=== PATIENT | female | born 2000 | race African-American/Black ===

== ENCOUNTER 2021-05-28 07:54 | Inpatient (IN) | payer BC ==
[~2021-05-28] VITALS: Ht 167.6 cm; Wt 100.0 kg
[2021-05-28] MEDS ORDERED: OLANZapine ORAL DISINTEGRATING TAB 5MG PO ONE (08:55)
[2021-05-28 09:19] LABS: HEMATOCRIT 39.3 % (36.0-47.0); HEMOGLOBIN 12.2 g/dl (12.0-15.5); MEAN CORPUSCULAR HEMOGLOBIN 21.8 pg (27.0-33.0); MEAN CORPUSCULAR VOLUME 70.3 fl (80.0-96.0); PLATELET COUNT, AUTOMATED 345 10^3/uL (150-450); RED BLOOD COUNT 5.59 10^6/uL (4.00-5.40); WHITE BLOOD COUNT 6.5 10^3/uL (4.0-10.0)
[2021-05-28 09:46] LABS: HCG, SERUM QUALITATIVE NEGATIVE (NEGATIVE)
[2021-05-28 09:54] LABS: ACETAMINOPHEN LEVEL < 2.0 UG/ML (10.0-30.0); ALBUMIN 4.1 GM/DL (3.2-5.2); ALT/SGPT 23 U/L (12-78); BILIRUBIN,DIRECT < 0.1 MG/DL (0.0-0.2); BILIRUBIN,TOTAL 0.3 MG/DL (0.2-1.0); BLOOD UREA NITROGEN 12 MG/DL (7-18); CALCIUM LEVEL 9.4 MG/DL (8.5-10.1); CARBON DIOXIDE LEVEL 25 MEQ/L (21-32); CHLORIDE LEVEL 109 MEQ/L (98-107); CREATININE FOR GFR 1.14 MG/DL (0.55-1.30); ETHYL ALCOHOL (ETHANOL) 0.003 % (0.000-0.010); GLUCOSE, FASTING 107 MG/DL (70-100); POTASSIUM SERUM 3.8 MEQ/L (3.5-5.1); SALICYLATE LEVEL < 1.7 MG/DL (5.0-30.0); SODIUM LEVEL 140 MEQ/L (136-145); TOTAL PROTEIN 8.5 GM/DL (6.4-8.2)
[2021-05-28 11:23] LABS: AMPHETAMINES LEVEL URINE NEGATIVE (NEGATIVE); BARBITURATES URINE NEGATIVE (NEGATIVE); BENZODIAZEPINES URINE NEGATIVE (NEGATIVE); CANNABINOIDS URINE NEGATIVE (NEGATIVE); COCAINE METABOLITE URINE NEGATIVE (NEGATIVE); METHADONE URINE NEGATIVE (NEGATIVE); OPIATES URINE NEGATIVE (NEGATIVE); PHENCYCLIDINE URINE NEGATIVE (NEGATIVE)
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
[2021-05-28 15:35] LABS: RSV AMPLIFICATION NEGATIVE (NEGATIVE)
[2021-05-28] MEDS ORDERED: LORazepam 2 MG TAB PO STA (15:51)
[2021-05-28] MEDS ORDERED: HOME MED LIST COMPLETE! XX SCH (17:40)
[2021-05-28] MEDS ORDERED: MAALOX 30 ML SUSP *UDC PO PRN (18:40)
[2021-05-28] MEDS ORDERED: MOM 30ML SUSPENSION UDC PO PRN (18:40)
[2021-05-28] MEDS ORDERED: ACETAMINOPHEN TAB 650MG DOSE (2X325MG) PO PRN (18:40)
[2021-05-28 21:54] VITALS: BP 136/62
[2021-05-28] MEDS: OLANZapine ORAL DISINTEGRATING TAB 5MG PO PRN (22:39)
[2021-05-29] MEDS ORDERED: OLANZapine ORAL DISINTEGRATING TAB 5MG PO ONE (00:05)
[2021-05-29] MEDS: DIVALPROEX 250 MG TAB PO SCH ×2 (09:00→20:09)
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
[2021-05-29 16:25] VITALS: BP 149/87
[2021-05-29] MEDS: LEVALBUTEROL HFA 45MCG/ACT 15 GM INHALER INH PRN ×2 (17:35→20:56)
[2021-05-29] MEDS: traZODone 50 MG TAB PO PRN (20:10)
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
[2021-05-29] MEDS ORDERED: OLANZapine 5 MG TAB PO SCH (21:00)
[2021-05-29] MEDS: SYMBICORT 80/4.5MCG INHALER 6GM INH SCH (21:47)
[2021-05-30] MEDS: OLANZapine ORAL DISINTEGRATING TAB 5MG PO PRN ×3 (01:19→22:47)
[2021-05-30] MEDS ORDERED: LORazepam 1 MG TAB PO ONE ×2 (01:35→02:30)
[2021-05-30] MEDS ORDERED: haloperidoL 5 MG TAB PO ONE (02:30)
[2021-05-30] MEDS: SYMBICORT 80/4.5MCG INHALER 6GM INH SCH ×3 (08:45→22:50)
[2021-05-30] MEDS: DIVALPROEX 250 MG TAB PO SCH ×2 (08:46→22:26)
[2021-05-30] MEDS: LURASIDONE 20 MG TAB (LATUDA) PO SCH (12:16)
[2021-05-30 16:18] VITALS: BP 140/90
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
[2021-05-30] MEDS: LEVALBUTEROL HFA 45MCG/ACT 15 GM INHALER INH PRN (19:39)
[2021-05-30 19:41] VITALS: BP 144/79
[2021-05-30] MEDS: traZODone 50 MG TAB PO PRN (22:46)
[2021-05-31 06:51] VITALS: BP 145/67
[2021-05-31] MEDS: LURASIDONE 20 MG TAB (LATUDA) PO SCH (08:08)
[2021-05-31] MEDS: DIVALPROEX 250 MG TAB PO SCH (08:08)
[2021-05-31] MEDS: SYMBICORT 80/4.5MCG INHALER 6GM INH SCH ×2 (08:19→20:25)
[2021-05-31] MEDS ORDERED: LORazepam 1 MG TAB PO ONE (10:45)
[2021-05-31] MEDS ORDERED: haloperidoL 5 MG TAB PO STA (10:45)
[2021-05-31] MEDS ORDERED: LEVALBUTEROL HFA 45MCG/ACT 15 GM INHALER INH PRN (11:50)
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
[2021-05-31] MEDS: traZODone 50 MG TAB PO PRN (20:25)
[2021-05-31] MEDS: OLANZapine ORAL DISINTEGRATING TAB 5MG PO PRN (21:25)
[2021-06-01 06:52] VITALS: BP 140/60
[2021-06-01] MEDS: SYMBICORT 80/4.5MCG INHALER 6GM INH SCH ×2 (08:16→20:00)
[2021-06-01] MEDS ORDERED: CARIPRAZINE 1.5MG CAPSULE (VRAYLAR) PO SCH (09:00)
[2021-06-01] MEDS ORDERED: LORazepam 1 MG TAB PO ONE (14:05)
[2021-06-01] MEDS ORDERED: haloperidoL 5 MG TAB PO ONE (14:05)
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
[2021-06-01 18:26] VITALS: BP 126/58
[2021-06-01] MEDS: LITHIUM CARBONATE 150 MG CAP PO SCH (20:01)
[2021-06-01] MEDS: traZODone 50 MG TAB PO PRN (20:01)
[2021-06-02] MEDS: SYMBICORT 80/4.5MCG INHALER 6GM INH SCH ×2 (08:43→20:11)
[2021-06-02] MEDS: LITHIUM CARBONATE 150 MG CAP PO SCH ×2 (08:43→20:11)
[2021-06-02 16:51] VITALS: BP 140/68
[2021-06-02] MEDS: traZODone 50 MG TAB PO PRN (20:11)
[2021-06-03] MEDS: OLANZapine ORAL DISINTEGRATING TAB 5MG PO PRN ×2 (01:21→20:25)
[2021-06-03 06:30] VITALS: BP 114/56
[2021-06-03] MEDS: LITHIUM CARBONATE 150 MG CAP PO SCH ×2 (08:08→20:25)
[2021-06-03] MEDS: SYMBICORT 80/4.5MCG INHALER 6GM INH SCH ×2 (08:09→20:25)
[2021-06-03 16:23] VITALS: BP 126/64
[2021-06-04 06:41] VITALS: BP 113/63
[2021-06-04] MEDS: SYMBICORT 80/4.5MCG INHALER 6GM INH SCH (08:15)
[2021-06-04] MEDS: LITHIUM CARBONATE 150 MG CAP PO SCH (08:16)
[2021-06-04] MEDS ORDERED: LITH300C PO (09:36)
[2021-06-04] MEDS ORDERED: LEVAINH INH (09:36)
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
== END 2021-06-04 12:00 | disposition home or self-care (01) | DRG 753 ==
LOC: M ED 07:54 → M ED INP 18:40 → M PSY 21:14
PROVIDERS: ADMIT Psychiatry & Neurology Psychiatry; ATTEND Psychiatry & Neurology Psychiatry
DX: F31.9 Bipolar disorder, unspecified (principal); Z20.822 Contact with and (suspected) exposure to COVID-19; Z91.010 Allergy to peanuts; Z91.013 Allergy to seafood

== ENCOUNTER 2021-07-01 14:13 | Inpatient (IN) | payer BC ==
[~2021-07-01] VITALS: Ht 167.6 cm; Wt 99.8 kg
[~2021-07-01 14:13] MED LIST: LEVAINH INH; LITH300C PO
[2021-07-01] MEDS ORDERED: LORazepam 2 MG TAB PO STA (14:41)
[2021-07-01] MEDS ORDERED: OLANZapine INTRAMUSCULAR 10MG VIAL IM ONE ×2 (14:55→22:30)
[2021-07-01 16:10] LABS: HEMATOCRIT 39.8 % (36.0-47.0); HEMOGLOBIN 12.2 g/dl (12.0-15.5); MEAN CORPUSCULAR HEMOGLOBIN 21.8 pg (27.0-33.0); MEAN CORPUSCULAR HGB CONC 30.7 g/dl (32.0-36.5); MEAN CORPUSCULAR VOLUME 71.2 fl (80.0-96.0); PLATELET COUNT, AUTOMATED 281 10^3/uL (150-450); RED BLOOD COUNT 5.59 10^6/uL (4.00-5.40); WHITE BLOOD COUNT 6.6 10^3/uL (4.0-10.0)
[2021-07-01 16:36] LABS: HCG, SERUM QUALITATIVE NEGATIVE (NEGATIVE)
[2021-07-01 16:43] LABS: ACETAMINOPHEN LEVEL < 2.0 UG/ML (10.0-30.0); ALT/SGPT 27 U/L (12-78); BILIRUBIN,DIRECT 0.2 MG/DL (0.0-0.2); BILIRUBIN,TOTAL 0.4 MG/DL (0.2-1.0); BLOOD UREA NITROGEN 13 MG/DL (7-18); CALCIUM LEVEL 9.6 MG/DL (8.5-10.1); CARBON DIOXIDE LEVEL 23 MEQ/L (21-32); CHLORIDE LEVEL 108 MEQ/L (98-107); CREATININE FOR GFR 1.23 MG/DL (0.55-1.30); ETHYL ALCOHOL (ETHANOL) < 0.003 % (0.000-0.010); GLUCOSE, FASTING 90 MG/DL (70-100); LITHIUM LEVEL < 0.20 MEQ/L (0.60-1.20); SALICYLATE LEVEL < 1.7 MG/DL (5.0-30.0); SODIUM LEVEL 140 MEQ/L (136-145); TOTAL PROTEIN 8.3 GM/DL (6.4-8.2)
[2021-07-01 17:00] LABS: RSV AMPLIFICATION NEGATIVE (NEGATIVE)
[2021-07-01 19:16] LABS: AMPHETAMINES LEVEL URINE NEGATIVE (NEGATIVE); BARBITURATES URINE NEGATIVE (NEGATIVE); BENZODIAZEPINES URINE NEGATIVE (NEGATIVE); CANNABINOIDS URINE NEGATIVE (NEGATIVE); COCAINE METABOLITE URINE NEGATIVE (NEGATIVE); METHADONE URINE NEGATIVE (NEGATIVE); OPIATES URINE NEGATIVE (NEGATIVE); PHENCYCLIDINE URINE NEGATIVE (NEGATIVE)
--- NOTE | 2021-07-01 21:17 | ECGEPIP ---
[facility] - ED Test Date: 2021-07-01 Pat Name: EDMOND YOUNG Department: Room: - Gender: Female Hide And Skin Colerer: VVC : 2000 Requested By: JENNIFER Gonzalez Order Number: [id number] Reading MD: Prasad Jules Measurements Intervals [place] Rate: 95 P: 63 AL: 122 QRS: 73 QRSD: 72 T: 39 QT: 328 QTc: 412 Interpretive Statements Sinus rhythm with marked sinus arrhythmia POOR R WAVE PROGRESSION NO PRIORS FOR COMPARISON Electronically Signed on 07-01-2021 21:17:29 EST by Prasad Jules
[2021-07-01] MEDS ORDERED: LEVAINH INH (21:39)
[2021-07-01] MEDS ORDERED: LITH300C PO (21:39)
[2021-07-01] MEDS ORDERED: HOME MED LIST COMPLETE! XX SCH (21:40)
[2021-07-01] MEDS ORDERED: LORazepam 2 MG TAB PO ONE (22:10)
[2021-07-02] MEDS ORDERED: LORazepam 2 MG TAB PO STA (09:29)
[2021-07-02] MEDS ORDERED: ACETAMINOPHEN 500 MG TAB PO ONE (10:00)
[2021-07-02] MEDS ORDERED: OLANZapine INTRAMUSCULAR 10MG VIAL IM ONE (15:50)
[2021-07-02] MEDS ORDERED: diphenhydrAMINE 50MG/ML VIAL (J1200) IM ONE (17:50)
[2021-07-02] MEDS ORDERED: LORazepam 2 MG/ML VIAL IM ONE (17:50)
[2021-07-02] MEDS ORDERED: MAALOX 30 ML SUSP *UDC PO PRN (18:20)
[2021-07-02] MEDS ORDERED: OLANZapine ORAL DISINTEGRATING TAB 5MG PO PRN (18:20)
[2021-07-02] MEDS ORDERED: NICOTINE 21MG/24HR 1 EA TRANSDERMAL TD PRN (18:20)
[2021-07-02] MEDS ORDERED: MOM 30ML SUSPENSION UDC PO PRN (18:20)
--- OUTSIDE RECORDS SUMMARY | 2021-07-02 18:36 | CCD ---
Author Author [facility] Organization [facility] Address Unknown Phone Unavailable Care Team Providers Care Vice President Quality Improvement Name Role Phone BROUGHAL, C RAMOS PA Unavailable Unavailable BROUGHAL, C RAMOS PA Unavailable Unavailable BROUGHAL, C RAMOS PA Unavailable Unavailable BROUGHAL, C RAMOS PA Unavailable Unavailable BROUGHAL, C RAMOS PA Unavailable Unavailable BROUGHAL, C RAMOS PA Unavailable Unavailable Persons, L SAILAJA PA Unavailable Unavailable Persons, L SAILAJA PA Unavailable Unavailable Persons, L SAILAJA PA Unavailable Unavailable Persons, L SAILAJA PA Unavailable Unavailable Persons, L SAILAJA PA Unavailable Unavailable Persons, L SAILAJA PA Unavailable Unavailable Persons, L SAILAJA PA Unavailable Unavailable Persons, L SAILAJA PA Unavailable Unavailable Persons, L SAILAJA PA Unavailable Unavailable Persons, L SAILAJA PA Unavailable Unavailable Persons, L SAILAJA PA Unavailable Unavailable Persons, L SAILAJA PA Unavailable Unavailable Persons, L SAILAJA PA Unavailable Unavailable Persons, L SAILAJA PA Unavailable Unavailable Persons, L SAILAJA PA Unavailable Unavailable Persons, L SAILAJA PA Unavailable Unavailable Persons, L SAILAJA PA Unavailable Unavailable Re-disclosure Warning The records that you are about to access may contain information from federally-assisted alcohol or drug abuse programs. If such information is present, then the following federally mandated warning applies: This information has been disclosed to you from records protected by federal confidentiality rules (42 CFR part 2). The federal rules prohibit you from making any further disclosure of this information unless further disclosure is expressly permitted by the written consent of the person to whom it pertains or as otherwise permitted by 42 CFR part 2. A general authorization for the release of medical or other information is NOT sufficient for this purpose. The Federal rules restrict any use of the information to criminally investigate or prosecute any alcohol or drug abuse patient.The records that you are about to access may contain highly sensitive health information, the redisclosure of which is protected by Article 27-F of the [facility] Public Health law. If you continue you may have access to information: Regarding HIV / AIDS; Provided by facilities licensed or operated by the [facility] Office of Mental Health; or Provided by the [facility] Office for People With Developmental Disabilities. If such information is present, then the following [facility] mandated warning applies: This information has been disclosed to you from confidential records which are protected by state law. State law prohibits you from making any further disclosure of this information without the specific written consent of the person to whom it pertains, or as otherwise permitted by law. Any unauthorized further disclosure in violation of state law may result in a fine or senior care sentence or both. A general authorization for the release of medical or other information is NOT sufficient authorization for further disc losure. Encounters Encounter Providers Location Date Indications Data Source(s ) Outpatient Attender: SAILAJA KUO CPSCAGERSON-LABCN 05/23 02:50:00 PM EST - 06/19/2021 02:51:00 PM EST Z02.1 [facility] Z02.1 Patient discharged. Outpatient 03/14/2021 04:41:59 PM EDT - 021 05:28:03 PM EDT [facility] ([facility]) Outpatient 02/24/2021 04:26:11 PM EDT - 021 04:47:34 PM EDT [facility] ([facility]) Outpatient Attender: RAMOS KUO CPSCAORT-LABCOVEJN 0 08/14/2020 12:36:00 PM EST - 08/14/2020 12:37:00 PM EST SCREENING FOR CLINICAL [facility] SCREENING FOR CLINICAL Patient discharged. Immunizations Vaccine Date Status Description Data Source(s) COVID-19 VACCINE Pfizer 01/26/2021 12:00:00 AM EDT completed [facility] Vaccine Series Complete: YESThis Data wa s Submitted to [facility]. COVID-19 VACCINE Pfizer 01/05/2021 12:00:00 AM EDT [facility]: NOThis Data was Submitted to [facility]. Medications Medication Brand Name Start Date Product Form Dose Route Admi nistrative Instructions Pharmacy Instructions Status Indications Reaction Description Data Source(s) 60 mcg (15 mcg x 4)/0.5 mL 04/26/2021 12:00:00 AM EDT syringe 0 DIRECTED DIRECTED SOLD: 04/26/2021 [facility] Insurance Providers Payer name Policy type / Coverage type Policy ID Covered alliance party ID Covered alliance party's relationship to brothers Policy Brothers Plan Information [employer] [place] Blue Cross/B lue Shield [id number] Self [id number] [employer] [place] Blue Cross/B lue Shield [id number] Self [id number] [place] PPO 302/[id number] MO2 [id number] [facility] [id number] CHILD [id number] SELF PAY S [facility] [id number] BRIANDA [id number] Problems, Conditions, and Diagnoses Code Display Name Description Problem Type Effective Dates Data Source(s) Z02.1 Encounter for pre-employment examination ENCOUNTER FOR PRE-EMPLOYMENT EXAMINATION Diagnosis 06/19/2021 02:50:00 PM [facility] Surgeries/Procedures Procedure Description Date Indications Data Source(s) 39630 DRUG TEST PRSMV CHEM ANLYZR 06/19/2021 12:00:00 AM [facility] 38756 DRUG SCREEN QUANTALCOHOLS 06/19/2021 12:00:00 AM [facility] U0003 SARS-CoV-2 detection by nucleic acid 08/14/2020 12:00: 00 AM [facility] Results ID Date Data Source [id number] 06/22/2021 12:35:00 AM [facility] Name Value Range Interpretation Code Description Data Staci rce(s) Supporting Document(s) Amphetamines,UDS7 Oobzmi=4921 Normal (applies to non-numer ic results) [facility] Amphetamine test includes Amphetamine an d Methamphetamine. Barbiturates,UDS7 Tnytje=418 Normal (applies to non-numeri c results) [facility] Benzodiazepines,UDS7 Tkwjbr=550 Normal (applies to non-num radha results) [facility] Cannabinoid,UDS7 Cutoff=50 Normal (applies to non-numeric results) [facility] Cocaine,UDS7 Cnsvcw=189 Normal (applies to non-numeric res ults) [facility] Opiates,UDS7 Ohmmru=464 Normal (applies to non-numeric res ults) [facility] Opiate test includes Codeine and Morphin e only. Phencyclidine,UDS7 Cutoff=25 Normal (applies to non-numer ic results) [facility] Performed at: RN - [facility] [address] [id number] Commercial Sales Representative: Carine Villegas MD, Phone: [phone] ID Date Data Source [id number] 05/28/2021 02:39:00 PM EST [facility] Name Value Range Interpretation Code Description Data Tsaci rce(s) Supporting Document(s) SARS coronavirus 2 RNA [Presence] in Res piratory specimen by MAHI with probe detection NEGATIVE [facility] This lab was ordered by [facility] a nd reported by [facility]. ID Date Data Source [id number] 03/27/2021 12:04:00 PM EDT [facility] Name Value Range Interpretation Code Description Data Staci rce(s) Supporting Document(s) SARS coronavirus 2 Ag Covid_negative [facility] This lab was ordered by VANESSA Harrington and reported by [employer]. ID Date Data Source [id number] 03/16/2021 05:19:00 PM EDT [facility] Name Value Range Interpretation Code Description Data Staci rce(s) Supporting Document(s) SARS coronavirus 2 Ag Covid_negative [facility] This lab was ordered by [facility] and reported by [employer]. ID Date Data Source [id number] 03/14/2021 05:00:00 PM EDT [facility] Name Value Range Interpretation Code Description Data Staci rce(s) Supporting Document(s) SARS-CoV-2 RNA Resp Ql MAHI+probe NOT DETECTED [facility] This lab was ordered by PETE freitas and reported by [facility]. ID Date Data Source [id number] 02/24/2021 04:30:00 PM EDT [facility] Name Value Range Interpretation Code Description Data Staci rce(s) Supporting Document(s) SARS-CoV-2 RNA Resp Ql MAHI+probe NOT DETECTED [facility] This lab was ordered by PETE freitas and reported by PETE Stafford. ID Date Data Source [id number] 02/24/2021 03:43:00 PM EDT [facility] Name Value Range Interpretation Code Description Data Staci rce(s) Supporting Document(s) SARS coronavirus 2 RNA Not Detected [facility] This lab was ordered by [facility] [facility] and rep orted by [facility]. ID Date Data Source [id number] 02/05/2021 12:00:00 AM EDT [facility] Name Value Range Interpretation Code Description Data Staci rce(s) Supporting Document(s) SARS-CoV2 Rapid Antigen Negative [facility] This lab was ordered by [employer] [facility] and reported by [facility]. ID Date Data Source [id number] 11/21/2020 02:29:00 PM EDT [facility] Name Value Range Interpretation Code Description Data Staci rce(s) Supporting Document(s) SARS coronavirus 2 Ag Covid_negative [facility] This lab was ordered by VANESSA Harrington and reported by [employer]. ID Date Data Source [id number] 11/07/2020 02:21:00 PM EDT [facility] Name Value Range Interpretation Code Description Data Staci rce(s) Supporting Document(s) SARS coronavirus 2 Ag Covid_negative [facility] This lab was ordered by [facility]AN[facility] and reported by [employer]. ID Date Data Source [id number] 10/31/2020 12:38:00 PM EDT [facility] Name Value Range Interpretation Code Description Data Staci rce(s) Supporting Document(s) SARS coronavirus 2 Ag Covid_negative [facility] This lab was ordered by [facility] and reported by [employer]. ID Date Data Source [id number] 10/24/2020 02:23:00 PM EDT [facility] Name Value Range Interpretation Code Description Data Staci rce(s) Supporting Document(s) SARS coronavirus 2 Ag Covid_negative [facility] This lab was ordered by VANESSA Harrington and reported by [employer]. ID Date Data Source [id number] 10/16/2020 03:53:00 PM EDT [facility] Name Value Range Interpretation Code Description Data Staci rce(s) Supporting Document(s) SARS coronavirus 2 Ag Covid_negative [facility] This lab was ordered by VANESSA Harrington and reported by [employer]. ID Date Data Source [id number] 10/09/2020 12:00:00 AM EDT [facility] Name Value Range Interpretation Code Description Data Staci rce(s) Supporting Document(s) SARS coronavirus 2 Ag Covid_negative [facility] This lab was ordered by VANESSA Harrington and reported by [employer]. ID Date Data Source [id number] 08/16/2020 01:01:00 PM EST [facility] COVID-19 Specimen Source NASOPHARYNGEAL Is Patient admitted or to be admitted? NFirst test? NOEmployed in healthcare? YESSymptomatic per CDC? UNKNOWNHospitalized? NOICU? NOResident in congregated care? ex jail, ARC NO? NO Name Value Range Interpretation Code Description Data Staci rce(s) Supporting Document(s) SARS-CoV-2 RNA Negative Normal (applies to non-numeric r esults) [facility] Negative results do not preclude 2019-MS oV infection and should not be used as the sole basis for treatment or other patient management decisions. Negative results must be combined with clinical observations, patient history, and epidemiological information. This test was developed and its performance characteristics determined by [facility]. It has not been cleared or approved by the US Food and Drug Administration. FDA does not require this test to go through premarket FDA review. This test is used for clinical purposes. It should not be regarded as investigational or for research. This laboratory is certified under the Clinical Laboratory Improvement Amendments (CLIA) as qualified to perform high complexity clinical laboratory testing. This test is based on the CDC COVID-19 Emergency Use Authorization (EUA) assay, with minor modification as defined by the FDA Performed on the [employer] Quantstudio 7 Flex RT-PCR System. THIS IS A STATE REPORTABLE COMMUNICABLE DISEASE. Performing Lab Normal (applies to non-numeric r esults) [facility] COVID-19 Specimen Source: STRESS ENGINEER First test ?: N Employed in healthcare?: Y Symptomatic per CDC?: U Hospitalized?: N ICU?: N Resident in congregated care? ex jail, ARC: N ?: N Please indicate the Triage TierN Test performed or referred by The [address] [address] ID Date Data Source [id number] 08/14/2020 12:30:00 PM EST [facility] Name Value Range Interpretation Code Description Data Staci rce(s) Supporting Document(s) Respiratory specimen severe acute respir atory syndrome coronavirus 2 (SARS-CoV-2) RNA Negative (qualifier value) [facility] This lab was ordered by [facility] Amaris kothari and reported by [facility]. Procedure Social History No Information
[2021-07-02] MEDS: LITHIUM CARBONATE 300 MG CAP PO SCH ×2 (21:00→21:19)
[2021-07-02 22:30] VITALS: BP 150/81
[2021-07-02] MEDS: traZODone 50 MG TAB PO PRN (23:06)
[2021-07-03] MEDS ORDERED: diphenhydrAMINE 50MG CAP PO ONE (01:10)
[2021-07-03] MEDS ORDERED: LEVALBUTEROL HFA 45MCG/ACT 15 GM INHALER INH PRN (08:40)
[2021-07-03] MEDS ORDERED: LORazepam 2 MG/ML VIAL IM PRN (08:50)
[2021-07-03] MEDS ORDERED: LITHIUM CARBONATE 300 MG CAP PO SCH (09:00)
[2021-07-03] MEDS ORDERED: INFLUENZA QUADRIVALENT PF VACCINE 0.5ML SYRINGE IM ONE (09:00)
[2021-07-03] MEDS: LITHIUM CARBONATE 300 MG CAP PO SCH ×3 (09:21→21:00)
[2021-07-03] MEDS ORDERED: diphenhydrAMINE 50MG/ML VIAL (J1200) IM STA (11:07)
[2021-07-03] MEDS ORDERED: LORazepam 2 MG/ML VIAL IM STA (11:07)
[2021-07-03] MEDS ORDERED: HALOPERIDOL 5MG/ML VIAL (J1630 PER 1) IM STA ×2 (11:07→11:11)
--- NOTE | 2021-07-03 11:50 | MHIR ---
General Date: Jul 03, 2021 Time Initiated: 11:07 Restraint Documentation Order/Evaluation FACE TO FACE: Yes PHYSICIAN ASSESSMENT: Patient was threatening staff pushing up against them and becoming increasingly agitated and threatening. REASON FOR RESTRAINT: Patient poses imminent danger of harming self or others: Aggressive behavior, threatening staff. DE-ESCALATION INTERVENTIONS ATTEMPTED BEFORE USE OF RESTRAINTS: Verbal redirection MECHANICAL AND CHEMICAL RESTRAINTS USED: Haldol 10 mg im, lorazepam 2 mg im, diphenhydramine 50 mg LENGTH OF TIME ORDERED IN RESTRAINTS: 420 minutes. WHEN TO DISCONTINUE RESTRAINTS: When the patient is no longer a threat to themselves or others Post evaluation of restraint due in 24 hours. SHERICE VALENTINO MD Jul 03, 2021 11:50
[2021-07-03] MEDS: haloperidoL 5 MG TAB PO PRN (12:40)
[2021-07-03] MEDS: LORazepam 1 MG TAB PO PRN (12:40)
[2021-07-03] MEDS: diphenhydrAMINE 25MG CAP PO PRN (12:40)
--- NOTE | 2021-07-03 13:16 | MHHPEPDOC ---
General Date Of Admission: Jul 02, 2021 Legal Status: 9.39 Chief Complaint olivia History of Present Illness HISTORY OF THE PRESENT ILLNESS: Patient is a 20 -year-old , female, who has a history of bipolar 1 disorder, who presents with acute olivia, was last admitted May 28-2020 and discharged with lithium 300 mg nightly, was brought in by police after mother had concern for patient de compensating in context of possible noncompliance with medications. On interview patient is pressured, irritable mood, unable to be redirected and agitated, today was placed in mechanical and chemical restraints including Haldol 10 mg IM, lorazepam 2 mg, diphenhydramine 50 mg, last night had received Haldol IM due to acute agitation in context of olivia. Most of the information gathered from chart review. Toxicology screen negative. Per PSA report: "Pt is unable to participate in interview due to her level of psychosis, she was restrained and medicated shortly after arrival. TW contacted Mother and boyfriend to obtain collateral information. 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 She was recently discharged from [facility] on 06/04/21 and diagnosed with Bipolar I disorder, current episode, manic. Mother transported pt back to [facility] following [facility] discharge, stayed with her until - then returned home with boyfriend and she continued to attend nursing school. Mother reports she was doing well and compliant with medication until about 2 days ago. States pt has complained of significant sleep deprivation for the past 2 nights which may be triggering her decompensation, along with non-compliance with medication. Today, she noticed pt was acting bizarre during their phone conversation, not making any sense, therefore contacted the police. Currently, pt is circumstantial & tangential during the interview. She displays flight of ideas and grandiosity throughout [facility]. She believes she is seeing GOD and "they will hear and see me." Boyfriend was contacted who also feels pt's decompensation stems from lack of medication and sleep. She currently denies SI and HI, however is acutely psychotic at bedside and requires hospitalization." Psychiatric Review of Systems Depression (2 or more weeks): denies Olivia (4 or more days of): irritable/elevated mood, expansive mood, g randiosity, decreased need for sleep, talkativity, pressured, flight of ideas, distractibility, engages in risky behavior Psychosis: denies PTSD: denies Past Psychiatric History Previous Psychiatric Diagnosis: Bipolar, type 1 disorder, diagnosed on inpatient stay May 28-2020 at [facility] Previous Psychiatric Admissions: Per chart review [facility] when she was 11 years old Suicide Attempts: None per chart review Psychiatric Follow-up: None at this time Psychiatric medications: Risperdal and Earlington Past Medical History Medical Problems Per chart review asthma, allergies to fish, peanuts, albuterol, no head injuries or seizures, hospitalizations, no surgeries Family Medical/Psychiatric HX Medical Problems Per chart review no suicide attempts, no addiction, psychiatric disorders, father side diabetes and hypertension Addiction History other (Occasional nicotine, cannabis, alcohol per chart review, toxicology screen negative) Social History Her chart review, H&P by Dr. Moon May 2021 "childhood: Born in [facility]. Born to both parents. Older brother, Younger Sister. Cir Abuse/Trauma: Denies Current Living Situation: Lives with boyfriend and dogs Education: Currently a manager nursing Employment: Student Social Support: Family and Boyfriend Legal: None Marital: Not ." Mental Status Examination General Appearance: unkempt, other (Long beaded hair) Build: overweight Demeanor: mistrustful, very figety Eye Contact: intense Activity: agitated, anxious, hostile Behavior: agitated, impulsive, hyperactive, restless Speech: clear, pressured, spontaneous Mood: irritable, elevated, hypomanic Affect: inappropriate, labile, hostile, disorganized Thought Process: tangential, derailment Thought Content (Delusions): delusions Thought Content (Other): none reported Thought Content (Aggressive): none reported Perception (Hallucinations): none reported Perception (Other): none reported Cognition (Impairment of): unable to assess Cognition(Intelligence Est.): average Oriented: Awake, Alert, Oriented times three Insight: poor Judgment: Poor Psychosis: Psychotic Perceptions Diagnoses Bipolar disorder, type I, current episode manic A-FIB/CHADSVASC A-FIB History Current/History of A-Fib/PAF?: No Current PO Anticoag Therapy: No Age/Risk Factor Scoring CHADSVASC: CHADSVASC Response (Comments) Value Age Risk Factor Age < 65 years old 0 Gender Risk Factor Female 1 Hx of CHF No 0 Hx of HTN No 0 Hx of Stroke/TIA/or VTE No 0 Hx of Diabetes No 0 Hx of Vascular Disease No 0 Total 1 Treatment Treatment ordered: NONE Reason Anticoagulant not given: Not indicated/[id number] Assessment Patient presents with manic behavior, irritability agitation, requiring chemical physical restraints with Haldol, lorazepam, diphenhydramine, was irritable but agreeable to starting lithium 300 mg 3 times daily for acute olivia, has as needed Haldol, lorazepam. Patient toxicology screen is negative. Per chart review patient was brought in by police after mother called due to concern of noncompliance with medications and acute manic behavior. TSH, creatinine, bun, within normal limits, EKG reviewed and unremarkable. Initial Treatment Plan 1. Patient was admitted on a [9.39] status. 2. Complete history was obtained. 3. With patients permission, family will be contacted and database will be expanded. 4. Patients medication regimen will be reviewed and changed accordingly. 5. Patient will be provided with protected environment. 6. Patient will be treated with individual, group, and milieu therapies. 7. Patient will receive supportive psych-education. 8. Discharge planning will commence immediately. 9. Outpatient follow-up treatment will be strongly recommended. 10. The initial treatment plan will focus initially on: * Depression. * Risk for suicide. ESTIMATED LENGTH OF STAY: - DAYS. TIME SPENT COUNSELING AND COORDINATING INITIAL CARE: minutes. Tobacco Cessation Screen If Patient is a Smoker unclear Tobacco Cessation Tx Ordered?: Yes Ordered/Pending Vital Signs Vital Signs Date Time Temp Pulse Resp B/P (MAP) Pulse Ox O2 Delivery O2 Flow Rate FiO2 07/02/21 22:30 98.2 109 18 150/81 (104) 100 Room Air Medications Scheduled Earlington Carbonate (E[place]lington Carbonate) 300 Mg Capsule, 300 MG PO QHS, (Reported) Scheduled PRN Levalbuterol Hydrochloride (Xopenex Hfa) 15 Gm Hfa.aer.ad, 2 PUFF INH Q4H PRN for SHORTNESS OF BREATH, (Reported) Allergies Coded Allergies: FISH (Verified Allergy, Severe, hives, 05/28/21) peanut (Verified Allergy, Severe, hives, 05/28/21) SHERICE VALENTINO MD Jul 03, 2021 13:16
[2021-07-03] MEDS ORDERED: DIVALPROEX 250MG *ER* TAB PO ONE (14:10)
[2021-07-03] MEDS ORDERED: chlorproMAZINE INJ 50MG/2ML AMP (J3230) IM STA (14:10)
[2021-07-03] MEDS ORDERED: chlorproMAZINE INJ 50MG/2ML AMP (J3230) As Ordered ONE (14:14)
[2021-07-04] MEDS: chlorproMAZINE 25 MG TABLET PO PRN ×2 (06:28→21:27)
[2021-07-04 06:30] VITALS: BP 143/85
[2021-07-04] MEDS: LITHIUM CARBONATE 300 MG CAP PO SCH (08:16)
[2021-07-04 08:36] LABS: CHOLESTEROL RISK RATIO 3.127 (<5)
[2021-07-04] MEDS ORDERED: DIVALPROEX 500MG *ER* TAB PO SCH (09:00)
--- NOTE | 2021-07-04 11:19 | MHPR ---
General Date: Jul 04, 2021 Time: 10:00 Post-Restraint Evaluation THE OUTCOME OF THE RESTRAINT: Patient more calm and redirectable, less agitated, but continues to be intrusive with hypomanic symptoms. EFFECTIVENESS OF THE RESTRAINT: Mechanical and/or chemical: Positive ANY EVIDENCE THAT THE PATIENT WAS AFFECTED EMOTIONALLY: Not endorsed ANY NEED FOR COUNSELING/ASSISTANCE: none at this time CHANGES IN TREATMENT PLAN: Adjusted standing medications to increase mood stabilization. RECOMMENDATIONS FOR FUTURE INCIDENTS: offer prn medications earlier including ThorSHERICE Archuleta MD Jul 04, 2021 11:19
--- NOTE | 2021-07-04 12:35 | MHIPNPDOC ---
[facility] Progress Note Progress Note DATE OF SERVICE: 07/04/21 HISTORY: Patient is a 20 -year-old , female, who has a history of bipolar 1 disorder, who presents with acute tarsha, was last admitted May 28-2020 and discharged with lithium 300 mg nightly, was brought in by police after mother had concern for patient decompensating in context of possible noncompliance with medications. On interview patient is pressured, irritable mood, unable to be redirected and agitated, today was placed in mechanical and chemical restraints including Haldol 10 mg IM, lorazepam 2 mg, diphenhydramine 50 mg, last night had received Haldol IM due to acute agitation in context of tarsha. Most of the information gathered from chart review. Toxicology screen negative. Interval: Yesterday patient needed both chemical and mechanical restraints as patient was threatening staff pushing up against them and becoming increasingly agitated and threatening. This morning patient appears to be calmer however still in a manic state with labile/irritable mood, pressure speech, disorganized thinking. She stated that "I am fine, I just need everyone to know that" and that "you are blessed by God". Denies any SI or HI or any acute physical complaints. Agreeable to medication changes including starting Depakote and Abilify, refuses lithium and has a history of noncompliance per parents. VITAL SIGNS: See below. NEW TEST RESULTS: See below. CURRENT MEDICATIONS: See below. MENTAL STATUS EXAMINATION: Patient is a 20-year old female, who has irritable/elevated mood, grandiosity, pressured speech, flight of ideas and having [employer] associations Speech: Is soft pressured fast speech. Thought processes including: denies SI/HI Thought content: denies SI/HI; tangential thinking; flight of ideas; disorganized Judgment: poor Insight: poor Orientation: unable to assess as patient became hostile Attention span and concentration: poor; flight of ideas; easily distractible Mood: less hostile, resistant, irritable/elevated mood Affect: inappropriate, disorganized, tangential thinking, grandiose, [employer] thoughts DIAGNOSES: 1. Bipolar disorder, type I, current episode manic ASSESSMENT: Patient presents with manic behavior of irritability, agitation, requiring chemical physical restraints with Haldol, lorazepam, diphenhydramine, was irritable but agreeable to changing her medications to help with her current episode. Received Depakote 1250mg yesterday to help with manic episode. AM Lipid panel was within normal limits. MANAGEMENT PLAN: Will discontinue her lithium as that has not help with her acute tarsha. Will start her on PO Depakote 1000mg daily and PO Abilify 15mg daily for acute tarsha. Monitor for any increased agitation/aggression. Continue home medications for medical conditions. TIME SPENT: 25 minutes. Vital Signs Vital Signs Date Time Temp Pulse Resp B/P (MAP) Pulse Ox O2 Delivery O2 Flow Rate FiO2 07/04/21 06:30 98.6 87 18 143/85 (104) 100 Room Air Laboratory Data 24H Labs Laboratory Tests 2 07/04/21 07:58: Triglycerides Level 55, Total Cholesterol 147, LDL Cholesterol 89, Non-HDL Cholesterol (LDL + VLDL) 100, Total HDL Cholesterol 47, Cholesterol/HDL Ratio 3.127 Current Medications Current Medications Medications (Trade) Dose Ordered Sig/Ean Route PRN Reason Start Time Stop Time Status Last Admin Dose Admin Acetaminophen (Tylenol Tab) 650 mg Q6HP PRN PO HEADACHE or MILD DISCOMFORT 07/02/21 18:20 Al Hydrox/Mg Hydrox/Simethicone (Mylanta) 30 ml Q4HP PRN PO HEARTBURN/INDIGESTION 07/02/21 18:20 Aripiprazole (AbiLIFY) 15 mg QHS PO 07/04/21 21:00 Chlorpromazine HCl (Thorazine) 50 mg Q4HP PRN PO AGITATION 07/03/21 15:40 07/04/21 06:28 Chlorpromazine HCl (Thorazine) 50 mg STAT STAT IM 07/03/21 14:10 07/03/21 14:17 DC 07/03/21 14:20 Diphenhydramine HCl (Benadryl) 25 mg Q4HP PRN PO ITCHING 07/03/21 08:50 07/03/21 12:40 Diphenhydramine HCl (Benadryl) 50 mg STAT STAT IM 07/03/21 11:07 07/03/21 11:09 DC 07/03/21 11:14 Divalproex Sodium (Depakote Er) 1,000 mg DAILY PO 07/04/21 09:00 07/04/21 08:15 Haloperidol (Haldol) 5 mg Q4HP PRN PO AGITATION 07/03/21 08:50 07/03/21 12:40 Haloperidol (Haldol) 5 mg STAT STAT IM 07/03/21 11:07 07/03/21 11:12 DC Haloperidol (Haldol) 10 mg STAT STAT IM 07/03/21 11:11 07/03/21 11:12 DC 07/03/21 11:15 Home Med (Home Med List Complete!) ASDIRECTED XX 07/01/21 21:40 07/01/21 21:45 DC Levalbuterol HCl (Xopenex Hfa) 2 puff Q6HP PRN INH SHORTNESS OF BREATH 07/03/21 08:40 [place] Carbonate ([place] Carbonate) 300 mg BID PO 07/03/21 09:00 07/03/21 08:47 DC [place] Carbonate ([place] Carbonate) 300 mg QHS PO 07/02/21 20:00 07/03/21 09:09 DC 07/02/21 21:19 [place] Carbonate ([place] Carbonate) 300 mg TID PO 07/03/21 09:00 07/04/21 08:35 DC 07/04/21 08:16 Lorazepam (Ativan) 2 mg Q4HP PRN IM AGITATION 07/03/21 08:50 Cancel Lorazepam (Ativan) 2 mg Q4HP PRN PO AGITATION 07/03/21 10:30 07/03/21 12:40 Lorazepam (Ativan) 2 mg STAT STAT IM 07/03/21 11:07 07/03/21 11:09 DC 07/03/21 11:15 Lorazepam (Ativan) 2 mg STAT STAT PO 07/01/21 14:41 07/01/21 14:42 Cancel Lorazepam (Ativan) 2 mg STAT STAT PO 07/02/21 09:29 07/02/21 09:30 DC 07/02/21 10:04 Magnesium Hydroxide (Milk Of Magnesia) 30 ml DAILYPRN PRN PO CONSTIPATION 07/02/21 18:20 Nicotine (Nicoderm Cq 21mg) 1 patch DAILY PRN TD NICOTINE WITHDRAWAL 07/02/21 18:20 Olanzapine (ZyPREXA ZYDIS) 5 mg Q6HP PRN PO AGITATION/ANXIETY 07/02/21 18:20 07/03/21 15:41 DC 07/02/21 23:06 Trazodone HCl (Desyrel) 50 mg QHSP PRN PO INSOMNIA 07/02/21 18:20 07/02/21 23:06 Allergies Coded Allergies: FISH (Verified Allergy, Severe, hives, 05/28/21) peanut (Verified Allergy, Severe, hives, 05/28/21) GME ATTESTATION My faculty preceptor for this patient encounter was physically present during the encounter and was fully available. All aspects of the patient interview, examination, medical decision making process, and medical care plan development were reviewed and approved by the faculty preceptor. The faculty preceptor is aware and concurs with the plan as stated in the body of this note and will attest to such by his/her cosignature. Mary Ellen Crockett DO Jul 04, 2021 12:35 SHERICE VALENTINO MD Jul 04, 2021 12:47
--- NOTE | 2021-07-04 14:18 | CR.PDOC ---
General Date of Consultation: Jul 04, 2021 Attending Physician: Shanita Ascencio MD Consultation REASON FOR CONSULTATION: Medicine H&P HISTORY OF PRESENT ILLNESS: 20 y/o AA F hx of bipolar type I disorder who was brought into [place] emergency room by police and her mother after noncompliance with medications at home, irritable mood, pressured speech, inability to be redirected easily. She was also very agitated and became aggressive with staff. The patient was placed in mechanical restraints and also given chemical restraints with Haldol, lorazepam, diphenhydramine. She was later admitted to [facility] for bipolar disorder. After admission to inpatient mental health the patient needed chemical and mechanical restraints again as she became threatening to staff. She was very irritable had disorganized thinking. I was consulted to do medicine evaluation. ALLERGIES: Please see below. HOME MEDICATIONS: Please see below. PAST MEDICAL HISTORY: Bipolar disorder Noncompliant with medications PAST SURGICAL HISTORY: None FAMILY HISTORY: No significant family history SOCIAL HISTORY: Denies alcohol, illicit drug or tobacco use. 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 PHYSICAL EXAMINATION: VS: Please see below CONSTITUTIONAL: No acute distress, cooperative, AAO x 3 EYES: PERRLA, EOM intact, corrective lenses in place HENT, MOUTH: Normocephalic, atraumatic, moist mucous membranes NECK: SUPPLE, no JVD, no lymphadenopathy, no carotid bruit CV: Regular rate and rhythm, S1S2 normal, no murmurs/rubs/gallops RESPIRATORY: Clear to auscultation bilaterally, no rales/rhonchi/wheezes GI: BS positive in 4 quadrants, soft, nontender, nondistended, no rebound or guarding, no organomegaly : Deferred MUSCULOSKELETAL: Normal ROM. No cyanosis, clubbing, swelling, joint deformity, extremity edema INTEGUMENTARY: Intact, no rashes, no lesions, no erythema NEUROLOGIC: Cranial Nerves II-XII are intact, no focal deficits PSYCHIATRIC: Mood and affect are normal LABORATORY DATA: Please see below IMAGING: None ASSESSMENT: 20 y/o F admitted for bipolar disorder to [facility]. PLAN: Bipolar disorder, type I -Plan per psychiatry DISPOSITION: Thank you kindly for this consult. At this time I will sign off. If we are needed again please do not hesitate to reconsult. Vital Signs/I&O Vital Signs Date Time Temp Pulse Resp B/P (MAP) Pulse Ox O2 Delivery O2 Flow Rate FiO2 07/04/21 06:30 98.6 87 18 143/85 (104) 100 Room Air Laboratory Data Labs 24H Laboratory Tests 2 07/04/21 07:58: Triglycerides Level 55, Total Cholesterol 147, LDL Cholesterol 89, Non-HDL Cholesterol (LDL + VLDL) 100, Total HDL Cholesterol 47, Cholesterol/HDL Ratio 3.127 Allergies Coded Allergies: FISH (Verified Allergy, Severe, hives, 05/28/21) peanut (Verified Allergy, Severe, hives, 05/28/21) Home Medications Scheduled [place] Carbonate ([place] Carbonate) 300 Mg Capsule, 300 MG PO QHS, (Reported) Scheduled PRN Levalbuterol Hydrochloride (Xopenex Hfa) 15 Gm Hfa.aer.ad, 2 PUFF INH Q4H PRN for SHORTNESS OF BREATH, (Reported) Shanita Ascencio MD Jul 04, 2021 14:18
[2021-07-04] MEDS ORDERED: ARIPiprazole 15 MG TAB (AbiLIFY) PO SCH (21:00)
[2021-07-04] MEDS: haloperidoL 5 MG TAB PO PRN (21:22)
[2021-07-04] MEDS: diphenhydrAMINE 25MG CAP PO PRN (21:22)
[2021-07-05] MEDS ORDERED: chlorproMAZINE 25 MG TABLET As Ordered ONE (01:50)
[2021-07-05] MEDS ORDERED: haloperidoL 5 MG TAB As Ordered ONE (01:50)
[2021-07-05] MEDS ORDERED: LORazepam 2 MG TAB As Ordered ONE (01:51)
[2021-07-05] MEDS ORDERED: diphenhydrAMINE 25MG CAP As Ordered ONE (01:51)
[2021-07-05] MEDS ORDERED: HALOPERIDOL 5MG/ML VIAL (J1630 PER 1) As Ordered ONE (02:27)
[2021-07-05] MEDS ORDERED: diphenhydrAMINE 50MG/ML VIAL (J1200) As Ordered ONE (02:27)
[2021-07-05] MEDS ORDERED: LORazepam 2 MG/ML VIAL As Ordered ONE (02:29)
[2021-07-05] MEDS ORDERED: HALOPERIDOL 5MG/ML VIAL (J1630 PER 1) IM ONE (03:05)
[2021-07-05] MEDS ORDERED: diphenhydrAMINE 50MG/ML VIAL (J1200) IM ONE (03:10)
[2021-07-05] MEDS ORDERED: LORazepam 2 MG/ML VIAL IM ONE (03:10)
[2021-07-05 06:08] VITALS: BP 116/59
[2021-07-05] MEDS: ARIPiprazole 15 MG TAB (AbiLIFY) PO SCH ×3 (08:27→21:47)
[2021-07-05] MEDS ORDERED: DIVALPROEX 250MG *ER* TAB PO SCH (09:00)
[2021-07-05] MEDS ORDERED: ARIPiprazole MONOHYDRATE 400 MG INJ (ABILIFY) IM SCH (09:00)
--- NOTE | 2021-07-05 11:45 | MHIPNPDOC ---
[facility] Progress Note Progress Note DATE OF SERVICE: 07/05/21 HISTORY: Patient is a 20 -year-old , female, who has a history of bipolar 1 disorder, who presents with acute tarsha, was last admitted May 28-2020 and discharged with lithium 300 mg nightly, was brought in by police after mother had concern for patient decompensating in context of possible noncompliance with medications. On interview patient is pressured, irritable mood, unable to be redirected and agitated, today was placed in mechanical and chemical restraints including Haldol 10 mg IM, lorazepam 2 mg, diphenhydramine 50 mg, last night had received Haldol IM due to acute agitation in context of tarsha. Most of the information gathered from chart review. Toxicology screen negative. Interval: Patient was seen today in a much calmer state but still having press ured speech and getting confrontational and intrusive with others at times. Patient made a call to her parents to try to mend things; when stating what happened, she states "my mother is so controlling. All she cares about is my pharmacology exam which I missed because she called the police on me". She also stated that her boyfriend should be her "health care proxy since he loves me and every couple breaks up a few times and I love him". She is worried about her future as finals exams are coming up. Denies any SI or HI or any acute physical complaints. Agreeable to medications Depakote and Abilify and any adjustments needed. Was more redirectable when spoken in a calmer tone, at times is even interruptible which is an improvement. Patient continues to have some behavioral outbursts with staff splitting, first agreeing to having releases to speak with family then refusing. We will continue to approach to see if can obtain collateral. Denying suicidal or homicidal ideations. Not reporting any side effects from medications. VITAL SIGNS: See below. NEW TEST RESULTS: See below. CURRENT MEDICATIONS: See below. MENTAL STATUS EXAMINATION: Patient is a 20-year old female, who still has pressured speech appearing much calmer than yesterday Speech: Is soft pressured speech Thought processes including: denies SI/HI or plan Thought content: denies SI/HI or plans; hyper-focused on her missing pharmacology exam/finals; less tangential Judgment: poor Insight: poor, small improvement considering now is consistent with medications and agreeable to treatment Orientation: AAOx4 Attention span and concentration: improved from yesterday, still poor; was able to have a more linear conversation with her Mood: "Okay" Affect: Has periods where she is more withdrawn, at other times inappropriate, elevated, irritable, anxious, less disorganized, somewhat mood incongruent DIAGNOSES: 1. Bipolar disorder, type I, current episode manic ASSESSMENT: Patient presents with manic behavior of irritability and intrusiveness which sometimes needs a PO cocktail of Haldol, lorazepam, diphenhydramine, was irritable but agreeable to changing her medications to help with her current episode. Today continues to be intrusive, irritable but is less pressured and interruptible at times also redirectable, does not appear disorganized or internally preoccupied. Patient is agreeable to medication changes, made aware of common rare side effects. Sleep per chart review was approximately 3 hours despite receiving IM medications. MANAGEMENT PLAN: Will adjust her PO Depakote 1000mg to 1250mg daily and PO Abilify to 15mg daily to BID for current manic episode. Will switch Haldol to Thorazine as that appears to be more effective for her episodic agitation. Patient is agreeable to receiving Abilify IM WONG 400 mg p.o. monthly. Will monit or for any increased agitation/aggression. Continue home medications for medical conditions. TIME SPENT: 30 minutes. Vital Signs Vital Signs Date Time Temp Pulse Resp B/P (MAP) Pulse Ox O2 Delivery O2 Flow Rate FiO2 07/05/21 06:08 98.2 108 18 116/59 (78) 100 Room Air Current Medications Current Medications Medications (Trade) Dose Ordered Sig/Ean Route PRN Reason Start Time Stop Time Status Last Admin Dose Admin Acetaminophen (Tylenol Tab) 650 mg Q6HP PRN PO HEADACHE or MILD DISCOMFORT 07/02/21 18:20 Al Hydrox/Mg Hydrox/Simethicone (Mylanta) 30 ml Q4HP PRN PO HEARTBURN/INDIGESTION 07/02/21 18:20 Aripiprazole (AbiLIFY) 15 mg BID PO 07/05/21 09:00 07/05/21 08:27 Aripiprazole (AbiLIFY) 15 mg QHS PO 07/04/21 21:00 07/05/21 08:06 DC 07/04/21 21:22 Chlorpromazine HCl (Thorazine) 50 mg Q4HP PRN PO AGITATION 07/03/21 15:40 07/04/21 21:27 Chlorpromazine HCl (Thorazine) 50 mg STAT STAT IM 07/03/21 14:10 07/03/21 14:17 DC 07/03/21 14:20 Diphenhydramine HCl (Benadryl) 25 mg Q4HP PRN PO ITCHING 07/03/21 08:50 07/04/21 21:22 Diphenhydramine HCl (Benadryl) 50 mg STAT STAT IM 07/03/21 11:07 07/03/21 11:09 DC 07/03/21 11:14 Divalproex Sodium (Depakote Er) 1,000 mg DAILY PO 07/04/21 09:00 07/05/21 08:06 DC 07/04/21 08:15 Divalproex Sodium (Depakote Er) 1,250 mg DAILY PO 07/05/21 09:00 07/05/21 08:27 Haloperidol (Haldol) 5 mg Q4HP PRN PO AGITATION 07/03/21 08:50 07/05/21 08:06 DC 07/04/21 21:22 Haloperidol (Haldol) 5 mg STAT STAT IM 07/03/21 11:07 07/03/21 11:12 DC Haloperidol (Haldol) 10 mg STAT STAT IM 07/03/21 11:11 07/03/21 11:12 DC 07/03/21 11:15 Home Med (Home Med List Complete!) ASDIRECTED XX 07/01/21 21:40 07/01/21 21:45 DC Levalbuterol HCl (Xopenex Hfa) 2 puff Q6HP PRN INH SHORTNESS OF BREATH 07/03/21 08:40 [place] Carbonate (Paint Carbonate) 300 mg BID PO 07/03/21 09:00 07/03/21 08:47 DC [place] Carbonate (Paint Carbonate) 300 mg QHS PO 07/02/21 20:00 07/03/21 09:09 DC 07/02/21 21:19 [place] Carbonate (Paint Carbonate) 300 mg TID PO 07/03/21 09:00 07/04/21 08:35 DC 07/04/21 08:16 Lorazepam (Ativan) 2 mg Q4HP PRN IM AGITATION 07/03/21 08:50 Cancel Lorazepam (Ativan) 2 mg Q4HP PRN PO AGITATION 07/03/21 10:30 07/03/21 12:40 Lorazepam (Ativan) 2 mg STAT STAT IM 07/03/21 11:07 07/03/21 11:09 DC 07/03/21 11:15 Lorazepam (Ativan) 2 mg STAT STAT PO 07/01/21 14:41 07/01/21 14:42 Cancel Lorazepam (Ativan) 2 mg STAT STAT PO 07/02/21 09:29 07/02/21 09:30 DC 07/02/21 10:04 Magnesium Hydroxide (Milk Of Magnesia) 30 ml DAILYPRN PRN PO CONSTIPATION 07/02/21 18:20 Nicotine (Nicoderm Cq 21mg) 1 patch DAILY PRN TD NICOTINE WITHDRAWAL 07/02/21 18:20 Olanzapine (ZyPREXA ZYDIS) 5 mg Q6HP PRN PO AGITATION/ANXIETY 07/02/21 18:20 07/03/21 15:41 DC 07/02/21 23:06 Trazodone HCl (Desyrel) 50 mg QHSP PRN PO INSOMNIA 07/02/21 18:20 07/02/21 23:06 Allergies Coded Allergies: FISH (Verified Allergy, Severe, hives, 05/28/21) peanut (Verified Allergy, Severe, hives, 05/28/21) GME ATTESTATION My faculty preceptor for this patient encounter was physically present during the encounter and was fully available. All aspects of the patient interview, examination, medical decision making process, and medical care plan development were reviewed and approved by the faculty preceptor. The faculty preceptor is aware and concurs with the plan as stated in the body of this note and will attest to such by his/her cosignature. Mary Ellen Crockett DO Jul 05, 2021 11:44 SHERICE VALENTINO MD Jul 05, 2021 14:16
[2021-07-05 18:00] VITALS: BP 127/59
[2021-07-05] MEDS: LORazepam 1 MG TAB PO PRN (21:47)
[2021-07-05] MEDS: chlorproMAZINE 25 MG TABLET PO PRN (21:47)
[2021-07-05] MEDS: diphenhydrAMINE 25MG CAP PO PRN (21:47)
[2021-07-06 06:20] VITALS: BP 128/66
[2021-07-06] MEDS: DIVALPROEX 500MG *ER* TAB PO SCH (08:49)
[2021-07-06] MEDS: ARIPiprazole 15 MG TAB (AbiLIFY) PO SCH ×2 (08:49→20:52)
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
[2021-07-06] MEDS: ACETAMINOPHEN TAB 650MG DOSE (2X325MG) PO PRN ×2 (13:18→21:00)
[2021-07-06] MEDS: traZODone 50 MG TAB PO PRN (20:52)
[2021-07-07 06:00] VITALS: BP 119/67
[2021-07-07] MEDS: ACETAMINOPHEN TAB 650MG DOSE (2X325MG) PO PRN ×3 (07:58→21:48)
[2021-07-07] MEDS: ARIPiprazole 15 MG TAB (AbiLIFY) PO SCH ×2 (08:00→20:14)
[2021-07-07] MEDS: DIVALPROEX 500MG *ER* TAB PO SCH (08:00)
[2021-07-07 18:00] VITALS: BP 143/60
[2021-07-07] MEDS: traZODone 50 MG TAB PO PRN (20:14)
[2021-07-08] MEDS: ACETAMINOPHEN TAB 650MG DOSE (2X325MG) PO PRN (06:33)
[2021-07-08 06:43] VITALS: BP 128/60
[2021-07-08] MEDS: DIVALPROEX 500MG *ER* TAB PO SCH (08:34)
[2021-07-08] MEDS: ARIPiprazole 15 MG TAB (AbiLIFY) PO SCH ×2 (08:34→20:03)
[2021-07-08 19:00] VITALS: BP 132/81
[2021-07-08] MEDS: traZODone 50 MG TAB PO PRN (20:02)
[2021-07-09 06:38] VITALS: BP 111/59
[2021-07-09] MEDS: DIVALPROEX 500MG *ER* TAB PO SCH (08:21)
[2021-07-09] MEDS: ARIPiprazole 15 MG TAB (AbiLIFY) PO SCH (08:21)
[2021-07-09] MEDS ORDERED: ABIL1TAB12 PO (10:17)
[2021-07-09] MEDS ORDERED: NICO21PAT TD (10:17)
[2021-07-09] MEDS ORDERED: ABIL400I IM (10:17)
[2021-07-09] MEDS ORDERED: DEPA500T2 PO (10:17)
[2021-07-09] MEDS ORDERED: TRAZ-252 PO (10:17)
[2021-07-09] MEDS: ACETAMINOPHEN TAB 650MG DOSE (2X325MG) PO PRN (11:18)
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
== END 2021-07-09 12:46 | disposition home or self-care (01) | DRG 753 ==
LOC: M ED 14:13 → M ED INP 07-02 18:17 → M PSY 07-02 22:20
PROVIDERS: ADMIT Psychiatry & Neurology Psychiatry; ATTEND Psychiatry & Neurology Psychiatry
DX: F31.10 Bipolar disorder, current episode manic without psychotic features, unspecified (principal); Z91.14 Patient's other noncompliance with medication regimen; Z78.1 Physical restraint status; J45.909 Unspecified asthma, uncomplicated; Z88.8 Allergy status to other drugs, medicaments and biological substances; Z79.899 Other long term (current) drug therapy; Z20.822 Contact with and (suspected) exposure to COVID-19; Z91.010 Allergy to peanuts; Z91.013 Allergy to seafood; Z73.3 Stress, not elsewhere classified

== ENCOUNTER 2022-02-13 12:57 | Inpatient (IN) | payer BC, OTHER ==
[~2022-02-13] VITALS: Ht 170.2 cm; Wt 97.3 kg
[~2022-02-13 12:57] MED LIST changes: +ABIL1TAB12 PO; +ABIL400I IM; +DEPA500T2 PO; +NICO21PAT TD; +TRAZ-252 PO
[2022-02-13 15:02] LABS: HEMATOCRIT 39.3 % (36.0-47.0); HEMOGLOBIN 12.2 g/dl (12.0-15.5); MEAN CORPUSCULAR HEMOGLOBIN 22.1 pg (27.0-33.0); MEAN CORPUSCULAR VOLUME 71.3 fl (80.0-96.0); PLATELET COUNT, AUTOMATED 377 10^3/uL (150-450); RED BLOOD COUNT 5.51 10^6/uL (4.00-5.40); WHITE BLOOD COUNT 5.3 10^3/uL (4.0-10.0)
[2022-02-13 15:26] LABS: AMPHETAMINES LEVEL URINE NEGATIVE (NEGATIVE); BARBITURATES URINE NEGATIVE (NEGATIVE); BENZODIAZEPINES URINE NEGATIVE (NEGATIVE); CANNABINOIDS URINE NEGATIVE (NEGATIVE); COCAINE METABOLITE URINE NEGATIVE (NEGATIVE); METHADONE URINE NEGATIVE (NEGATIVE); OPIATES URINE NEGATIVE (NEGATIVE); PHENCYCLIDINE URINE NEGATIVE (NEGATIVE)
[2022-02-13 15:33] LABS: ACETAMINOPHEN LEVEL < 2.0 UG/ML (10.0-30.0); ALBUMIN 4.6 GM/DL (3.2-5.2); ALT/SGPT 18 U/L (12-78); BILIRUBIN,DIRECT < 0.1 MG/DL (0.0-0.2); BILIRUBIN,TOTAL 0.3 MG/DL (0.2-1.0); BLOOD UREA NITROGEN 8 MG/DL (7-18); CALCIUM LEVEL 10.4 MG/DL (8.5-10.1); CARBON DIOXIDE LEVEL 23 MEQ/L (21-32); CHLORIDE LEVEL 109 MEQ/L (98-107); CREATININE FOR GFR 1.14 MG/DL (0.55-1.30); ETHYL ALCOHOL (ETHANOL) < 0.003 % (0.000-0.010); GLOMERULAR FILTRATION RATE > 60.0 (>60); GLUCOSE, FASTING 104 MG/DL (70-100); POTASSIUM SERUM 4.1 MEQ/L (3.5-5.1); SALICYLATE LEVEL < 1.7 MG/DL (5.0-30.0); SODIUM LEVEL 141 MEQ/L (136-145); TOTAL PROTEIN 8.7 GM/DL (6.4-8.2)
[2022-02-13 15:38] LABS: RSV AMPLIFICATION NEGATIVE (NEGATIVE)
[2022-02-13 15:53] LABS: HCG, SERUM QUALITATIVE NEGATIVE (NEGATIVE)
[2022-02-13] MEDS ORDERED: ARIP1TAB43 PO (17:20)
[2022-02-13] MEDS ORDERED: TRAZ-189 PO (17:20)
[2022-02-13] MEDS ORDERED: ACET1TAB55 PO (17:27)
[2022-02-13] MEDS ORDERED: HOME MED LIST COMPLETE! XX SCH (17:30)
[2022-02-13] MEDS ORDERED: LORazepam 0.5 MG TAB PO ONE (20:25)
[2022-02-14] MEDS ORDERED: OLANZapine INTRAMUSCULAR 10MG VIAL IM ONE (14:30)
[2022-02-14] MEDS ORDERED: HALOPERIDOL 5MG/ML VIAL (J1630 PER 1) IM ONE (21:35)
[2022-02-14] MEDS ORDERED: diphenhydrAMINE 50MG/ML VIAL (J1200) IM ONE (21:35)
[2022-02-14] MEDS ORDERED: MIDAZOLAM INJ 2MG/2ML VIAL (J2250 PER 1MG) IM ONE (21:35)
[2022-02-15] MEDS ORDERED: MOM 30ML SUSPENSION UDC PO PRN (08:40)
[2022-02-15] MEDS ORDERED: traZODone 50 MG TAB PO PRN (08:40)
[2022-02-15] MEDS ORDERED: MAALOX 30 ML SUSP *UDC PO PRN (08:40)
[2022-02-15] MEDS ORDERED: ACETAMINOPHEN TAB 650MG DOSE (2X325MG) PO PRN (08:40)
[2022-02-15] MEDS ORDERED: LORazepam 1 MG TAB PO PRN (08:40)
[2022-02-15] MEDS ORDERED: DIVALPROEX 500MG *ER* TAB PO STA (10:05)
[2022-02-15] MEDS: ARIPiprazole 10 MG TAB PO SCH ×2 (10:45→20:02)
[2022-02-15] MEDS ORDERED: LEVALBUTEROL HFA 45MCG/ACT 15 GM INHALER INH PRN (11:50)
[2022-02-15] MEDS ORDERED: diphenhydrAMINE 50MG CAP PO STA (13:30)
[2022-02-15] MEDS ORDERED: LORazepam 2 MG TAB PO STA (13:30)
[2022-02-15] MEDS ORDERED: HALOPERIDOL 5MG/ML VIAL (J1630 PER 1) IM STA (13:35)
[2022-02-15] MEDS ORDERED: LORazepam 2 MG/ML VIAL IM STA (13:35)
[2022-02-15] MEDS ORDERED: diphenhydrAMINE 50MG/ML VIAL (J1200) IM STA (13:35)
[2022-02-15] MEDS ORDERED: DIVALPROEX 250MG *ER* TAB PO SCH (21:00)
[2022-02-16 06:53] VITALS: BP 125/72
[2022-02-16] MEDS ORDERED: ARIPiprazole MONOHYDRATE 400 MG INJ (ABILIFY)(FREE PSY INPT ONLY) IM ONE (09:00)
[2022-02-16] MEDS: ARIPiprazole 10 MG TAB PO SCH ×2 (09:17→20:27)
[2022-02-16 15:15] LABS: CHOLESTEROL RISK RATIO 3.086 (<5)
[2022-02-16 18:00] VITALS: BP 112/71
[2022-02-16] MEDS: DIVALPROEX 500MG *ER* TAB PO SCH (20:27)
[2022-02-17 06:25] VITALS: BP 109/66
[2022-02-17] MEDS: ARIPiprazole 15 MG TAB (AbiLIFY) PO SCH ×2 (12:28→19:52)
[2022-02-17 18:00] VITALS: BP 132/67
[2022-02-17] MEDS: DIVALPROEX 500MG *ER* TAB PO SCH (19:53)
[2022-02-18 06:53] VITALS: BP 122/60
[2022-02-18] MEDS: ARIPiprazole 15 MG TAB (AbiLIFY) PO SCH ×2 (08:01→20:22)
[2022-02-18 18:00] VITALS: BP 120/70
[2022-02-18] MEDS: DIVALPROEX 500MG *ER* TAB PO SCH (20:22)
[2022-02-19 06:19] VITALS: BP 117/56
[2022-02-19] MEDS: ARIPiprazole 15 MG TAB (AbiLIFY) PO SCH (08:27)
[2022-02-19] MEDS ORDERED: ABIL1TAB12 PO (09:37)
[2022-02-19] MEDS ORDERED: DEPA500T2 PO (09:37)
[2022-02-19] MEDS ORDERED: ABIL1INJ2 IM (09:37)
== END 2022-02-19 13:02 | disposition home or self-care (01) | DRG 753 ==
LOC: M ED 12:57 → M ED INP 02-15 08:36 → M PSY 02-15 09:48
PROVIDERS: ADMIT Student in an Organized Health Care Education/Training Program; ATTEND Student in an Organized Health Care Education/Training Program
DX: F31.9 Bipolar disorder, unspecified (principal); Z78.1 Physical restraint status; J45.909 Unspecified asthma, uncomplicated; K59.00 Constipation, unspecified; Z91.013 Allergy to seafood; Z91.010 Allergy to peanuts; Z88.8 Allergy status to other drugs, medicaments and biological substances; Z79.899 Other long term (current) drug therapy; Z91.19 Patient's noncompliance with other medical treatment and regimen; Z91.14 Patient's other noncompliance with medication regimen

== ENCOUNTER → 2022-04-17 | Outpatient (CLI) | payer BC, OTHER ==
[~2022-04-17] MED LIST changes: +ABIL1INJ2 IM; +ACET1TAB55 PO; +ARIP1TAB43 PO; +TRAZ-189 PO
[2022-04-17 18:09] LABS: HEMOGLOBIN A1c 5.3 %
== END ==
LOC: M PLALAB 14:38
PROVIDERS: ATTEND Psychiatry & Neurology Psychiatry
DX: F31.9 Bipolar disorder, unspecified (principal)

== ENCOUNTER → 2023-07-02 | Outpatient (REF) | payer BC, OTHER ==
[2023-07-02 17:37] LABS: HEMATOCRIT 39.6 % (36.0-47.0); HEMOGLOBIN 11.7 g/dl (12.0-15.5); MEAN CORPUSCULAR HEMOGLOBIN 21.4 pg (27.0-33.0); MEAN CORPUSCULAR HGB CONC 29.5 g/dl (32.0-36.5); MEAN CORPUSCULAR VOLUME 72.3 fl (80.0-96.0); RED BLOOD COUNT 5.48 10^6/uL (4.00-5.40); WHITE BLOOD COUNT 5.5 10^3/uL (4.0-10.0)
[2023-07-02 18:03] LABS: ALBUMIN 3.7 G/DL (3.2-5.2); ALKALINE PHOSPHATASE 75 U/L (46-116); ALT/SGPT 15 U/L (7.0-40); AST/SGOT 12 U/L (<34); BILIRUBIN,TOTAL 0.2 MG/DL (0.3-1.2); BLOOD UREA NITROGEN 13 MG/DL (9-23); CALCIUM LEVEL 9.3 MG/DL (8.5-10.1); CARBON DIOXIDE LEVEL 27 MMOL/L (20-31); CHLORIDE LEVEL 106 MMOL/L (98-107); CHOLESTEROL LEVEL 161 MG/DL (<200); CHOLESTEROL RISK RATIO 3.07 (<5); CREATININE FOR GFR 0.88 MG/DL (0.55-1.30); GLOMERULAR FILTRATION RATE > 60.0 (>60); GLUCOSE, FASTING 75 MG/DL (60-100); HDL CHOLESTEROL 52.3 MG/DL (>40); LDL CHOLESTEROL 99.1 MG/DL (<100); NON-HDL-C 108.7 MG/DL; POTASSIUM SERUM 4.9 MMOL/L (3.5-5.1); SODIUM LEVEL 140 MMOL/L (136-145); TOTAL PROTEIN 7.3 G/DL (5.7-8.2); TRIGLYCERIDES LEVEL 48 MG/DL (<150)
[2023-07-02 18:04] LABS: THYROID STIMULATING HORMONE 2.772 uIU/ML (0.55-4.78)
[2023-07-02 18:05] LABS: FREE T4 0.94 NG/DL (0.89-1.76)
[2023-07-02 18:20] LABS: PLATELET COUNT, AUTOMATED 242 10^3/uL (150-450)
[2023-07-02 18:30] LABS: HIV 1&2 SCREEN NEGATIVE (NEGATIVE)
[2023-07-02 18:37] LABS: HEPATITIS C VIRUS ABY INDEX 0.09 INDEX (<0.8)
== END ==
LOC: M LAB REF 16:59
PROVIDERS: ATTEND Physician Assistant
DX: Z11.59 Encounter for screening for other viral diseases (principal); E66.9 Obesity, unspecified; Z13.220 Encounter for screening for lipoid disorders; Z13.1 Encounter for screening for diabetes mellitus; Z79.899 Other long term (current) drug therapy; R63.5 Abnormal weight gain; Z11.4 Encounter for screening for human immunodeficiency virus [HIV]